=== PATIENT | female | born 1960 | race Caucasian/White ===

== ENCOUNTER 2017-02-05 15:08 | Inpatient (IN) | payer OTHER ==
[2017-02-05 15:14] VITALS: BMI 21.0
[2017-02-05] MEDS ORDERED: Sodium Chloride 0.9% 1,000 ML IV ONE ×2 (15:28→18:16)
[2017-02-05 15:56] LABS: BASO # 0.1 K/uL (0.0-0.2); BASO % 1.3 % (0.0-2.0); EOS # 0.2 K/uL (0.0-0.7); EOS % 2.2 % (0.0-4.0); HEMATOCRIT 42.3 % (34.0-47.0); LYMPH # 2.1 K/uL (1.0-4.3); LYMPH % 19.1 % (20.0-40.0); MEAN CORPUSCULAR HEMOGLOBIN 26.5 pg (27.0-31.0); MEAN PLATELET VOLUME 6.3 fL (7.2-11.7); MONO % 8.8 % (0.0-10.0); RED CELL DISTRIBUTION WIDTH 15.3 % (11.5-14.5); WHITE BLOOD COUNT 11.2 K/uL (4.8-10.8)
[2017-02-05 15:57] LABS: MEAN CELL VOLUME 80.1 fL (81.0-99.0)
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
[2017-02-05 16:07] LABS: CHLORIDE 102 mmol/L (98-107); POTASSIUM 3.2 mmol/L (3.6-5.2); SODIUM 138 mmol/L (132-148)
[2017-02-05 16:09] LABS: ALB/GLOB RATIO 1.3 (1.0-2.1); AST/SGOT 26 U/L (14-36); BILIRUBIN,TOTAL 0.4 mg/dL (0.2-1.3); CARBON DIOXIDE 23 mmol/L (22-30); GFR AFRICAN-AMERICAN > 60; TOTAL PROTEIN 7.8 g/dL (6.3-8.3)
[2017-02-05 16:10] LABS: ALKALINE PHOSPHATASE 111 U/L (38-126); ALT/SGPT 32 U/L (9-52); BLOOD UREA NITROGEN 18 mg/dL (7-17); CALCIUM 9.6 mg/dl (8.6-10.4); GLUCOSE,RANDOM 89 mg/dL (65-105)
[2017-02-05 16:11] LABS: ALCOHOL SERUM < 10 mg/dl (0-10)
--- NOTE | 2017-02-05 16:18 | RAD ---
HISTORY: overdose/si COMPARISON: Chest x-ray performed 12/22/15 TECHNIQUE: Chest, one view. FINDINGS: LUNGS: Mild left basilar atelectasis. No focal consolidation. Please note that chest x-ray has limited sensitivity for the detection of pulmonary masses. PLEURA: No significant pleural effusion identified. No definite pneumothorax . CARDIOVASCULAR: Heart size appears top normal. OSSEOUS STRUCTURES: Degenerative changes. VISUALIZED UPPER ABDOMEN: Unremarkable. OTHER FINDINGS: None. IMPRESSION: Mild left basilar atelectasis.
[2017-02-05] MEDS ORDERED: Potassium Chloride 20 mEq ER Tab PO STA (16:53)
[2017-02-05] MEDS ORDERED: Potassium Chloride 20 mEq ER Tab PO ONE (17:05)
[2017-02-05 17:41] LABS: RBC URINE < 1 /hpf (0-3); URINE BACTERIA RARE (<OCC); URINE BILIRUBIN NEGATIVE (NEGATIVE); URINE BLOOD 1+ (NEGATIVE); URINE COLOR Straw (YELLOW); URINE GLUCOSE (UA) NORMAL (Normal); URINE KETONE NEGATIVE (NEGATIVE); URINE LEUKOCYTE ESTERASE NEG Leu/uL (Negative); URINE PROTEIN NEGATIVE (NEGATIVE); URINE UROBILINOGEN NORMAL mg/dL (0.2-1.0); WBC URINE < 1 /hpf (0-5)
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
[2017-02-05] MEDS: Sodium Chloride 0.9% 1,000 ML IV SCH (22:54)
[2017-02-06] MEDS: Enoxaparin 30 mg Syringe SC SCH (09:10)
[2017-02-06 11:46] LABS: BASO # 0.1 K/uL (0.0-0.2); BASO % 1.2 % (0.0-2.0); EOS # 0.2 K/uL (0.0-0.7); EOS % 1.8 % (0.0-4.0); HEMATOCRIT 42.8 % (34.0-47.0); LYMPH # 2.1 K/uL (1.0-4.3); LYMPH % 21.4 % (20.0-40.0); MEAN CELL VOLUME 80.3 fL (81.0-99.0); MEAN CORPUSCULAR HEMOGLOBIN 26.5 pg (27.0-31.0); MEAN PLATELET VOLUME 6.7 fL (7.2-11.7); MONO # 0.4 K/uL (0.0-0.8); MONO % 4.5 % (0.0-10.0); RED CELL DISTRIBUTION WIDTH 15.7 % (11.5-14.5); WHITE BLOOD COUNT 9.6 K/uL (4.8-10.8)
[2017-02-06 12:02] LABS: CHLORIDE 103 mmol/L (98-107); POTASSIUM 3.4 mmol/L (3.6-5.2); SODIUM 140 mmol/L (132-148)
[2017-02-06 12:04] LABS: ALB/GLOB RATIO 1.4 (1.0-2.1); AST/SGOT 28 U/L (14-36); BILIRUBIN,TOTAL 0.6 mg/dL (0.2-1.3); BLOOD UREA NITROGEN 10 mg/dL (7-17); CARBON DIOXIDE 23 mmol/L (22-30); GFR AFRICAN-AMERICAN > 60; TOTAL PROTEIN 7.6 g/dL (6.3-8.3)
[2017-02-06 12:05] LABS: ALKALINE PHOSPHATASE 100 U/L (38-126); ALT/SGPT 28 U/L (9-52); CALCIUM 8.7 mg/dl (8.6-10.4); GLUCOSE,RANDOM 151 mg/dL (65-105); MAGNESIUM 1.6 mg/dL (1.6-2.3); PHOSPHOROUS 3.2 mg/dL (2.5-4.5)
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
[2017-02-06] MEDS: Potassium Chloride 20 mEq ER Tab PO SCH (13:55)
--- NOTE | 2017-02-06 16:49 | PCM.BM ---
<Laurie Mary - Last Filed: 02/06/17 16:48> Treatment Plan Problems - Problems identified on initial assessmt Depression Date Initiated: 02/06/17 Time Initiated: 16:48 Assessment reference: NA Priority: 1 <Karen Garibay - Last Filed: 02/07/17 11:00> Discharge/Continuing Care - Education Needs Education Needs: Patient Medication, Patient Coping Skills - Discharge Discharge Criteria: Tolerates medication w/o severe side effects, Free of paranoid thoughts, No longer exhibiting s/s of withdrawal Discharge to:: Home, With Family <Reymundo Myers - Last Filed: 02/07/17 11:38> - Diagnosis (1) Bipolar disorder, curr episode mixed, severe, w/o psychotic features Status: Acute Interventions: 02/07/17 11:38 * Assess/adjust medications daily and /or as needed * See patient on an individual basis 7x/week to assess level of manic behaviors and stability * Discuss risks, benefits, side effects and alternatives of medications *
--- NOTE | 2017-02-06 17:10 | CARD ---
APPROVED REPORT EKG Measurement Heart [id number] <Conclusion> Normal sinus rhythm Left axis deviation Abnormal ECG
[2017-02-06] MEDS: Albuterol HFA 90 mcg/actuation (8 g) INH PRN (22:18)
[2017-02-07] MEDS: Potassium Chloride 20 mEq ER Tab PO SCH (09:35)
[2017-02-07] MEDS: Albuterol HFA 90 mcg/actuation (8 g) INH PRN (09:39)
[2017-02-07] MEDS ORDERED: Divalproex 250 mg DR Tab PO SCH (10:00)
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
[2017-02-07] MEDS: Enoxaparin 30 mg Syringe SC SCH (11:43)
[2017-02-07] MEDS: Sodium Chloride 0.9% 1,000 ML IV SCH (11:44)
[2017-02-08] MEDS: Albuterol HFA 90 mcg/actuation (8 g) INH PRN ×2 (06:33→11:21)
[2017-02-08] MEDS: Enoxaparin 30 mg Syringe SC SCH (09:20)
[2017-02-08] MEDS: Potassium Chloride 20 mEq ER Tab PO SCH (09:24)
[2017-02-08] MEDS: Pantoprazole 40 mg EC Tab PO SCH (09:24)
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
[2017-02-08 14:25] LABS: CHLORIDE 103 mmol/L (98-107)
[2017-02-08 14:26] LABS: SODIUM 144 mmol/L (132-148)
[2017-02-08 14:28] LABS: GFR AFRICAN-AMERICAN > 60
[2017-02-08 14:29] LABS: BLOOD UREA NITROGEN 22 mg/dL (7-17); CALCIUM 10.1 mg/dl (8.6-10.4); CARBON DIOXIDE 29 mmol/L (22-30); GLUCOSE,RANDOM 89 mg/dL (65-105)
[2017-02-08 14:44] LABS: FREE T4 0.93 ng/dL (0.78-2.19)
[2017-02-08 14:58] LABS: THYROID STIMULATING HORMONE 3.68 mIU/L (0.46-4.68)
[2017-02-09] MEDS: Pantoprazole 40 mg EC Tab PO SCH (09:47)
--- NOTE | 2017-02-10 08:47 | PCM.PYCHPN ---
Psychiatric Progress Note - Psychiatric Progress Note Patient seen today, length of contact: 16 minutes Patient Chief Complaint: "I'm crying all the time" Problems Identified/Issues Discussed: The pt is seen, chart reviewed, case discussed with staff. The pt is compliant with medications and reports no side-effects. Symptoms are improving but needs more time to stabilize. After care discussed, support and psychoeducation given. Still very depressed and tearful - support given Medication Change: Yes (increase lexapro and trazodone) Medical Record Reviewed: Yes Mental Status Examination - Cognitive Function Orientation: Person, Place, Situation, Time Memory: Intact Attention: WNL Concentration: Poor Association: WNL Fund of Knowledge: Poor - Mood Mood: Depressed, Anxious - Affect Affect: Constricted, Depressed - Speech Speech: Appropriate - Formal Thought Process Formal Thought Process: No Impairment - Suicidal Ideation Suicidal Ideation: No - Homicidal Ideation Homicidal Ideation: No Goal/Treatment Plan - Goal/Treatment Plan Need for Continued Stay: Remain at risks for inpatient hospitalization, Severe depression anxiety, Discharge may exacerbated symptoms, Severe functional impairment Progress Toward Problem(s) and Goals/Treatment Plan: Continue medications Support and psychoeducation daily Attend groups and activities daily After care planning by SERA
[2017-02-10] MEDS: Pantoprazole 40 mg EC Tab PO SCH (09:47)
--- NOTE | 2017-02-10 09:54 | PCM.PYCHPN ---
Psychiatric Progress Note - Psychiatric Progress Note Patient seen today, length of contact: 16 minutes Patient Chief Complaint: "I'm depressed." Problems Identified/Issues Discussed: The pt. is seen, chart reviewed, and case discussed with staff. Pt. reports to still being depressed and expresses great concern about her living situation after discharge. Pt.'s sister and daughter were supposed to come this morning to drop off her belongings, but they have not arrived yet. Pt. states she needs to talk to an agency about her new living situation but she is unable to b/c she doesn't have her checkbook to make phone bill payments. Pt. is distressed and tearful throughout the conversation. Pt. reports to having good appetite and slept well through the night with Trazodone. At present, pt. denies auditory and visual hallucinations and denies suicidal and homicidal ideation. Symptoms are improving but needs more time to stabilize. After care discussed, support and psychoeducation given. Medication Change: No Medical Record Reviewed: Yes Mental Status Examination - Cognitive Function Orientation: Person, Place, Situation, Time Memory: Intact Attention: WNL Concentration: Poor Association: WNL Fund of Knowledge: Poor - Mood Mood: Depressed, Anxious - Affect Affect: Constricted, Depressed - Speech Speech: Appropriate - Formal Thought Process Formal Thought Process: No Impairment - Suicidal Ideation Suicidal Ideation: No - Homicidal Ideation Homicidal Ideation: No Goal/Treatment Plan - Goal/Treatment Plan Need for Continued Stay: Remain at risks for inpatient hospitalization, Severe depression anxiety, Discharge may exacerbated symptoms Progress Toward Problem(s) and Goals/Treatment Plan: Bipolar depressed severe without psychotic features CBT Psychoeducation Supportive therapy, group therapy, individual therapy Haldol 10mg PO BID Haldol 5mg PO Q6H PRN voices/agitation [place] 300mg PO TID Seroquel 100mg PO HS Buspar 10mg PO TID PRN anxiety Estimated Date of D/C: 02/13/17 - Smoking Cessation Smoking Cessation Initiated: No
[2017-02-10] MEDS: Albuterol HFA 90 mcg/actuation (8 g) INH PRN (14:18)
[2017-02-11] MEDS: Pantoprazole 40 mg EC Tab PO SCH (09:23)
--- NOTE | 2017-02-11 09:49 | PCM.PYCHPN ---
Psychiatric Progress Note - Psychiatric Progress Note Patient seen today, length of contact: 16 minutes Patient Chief Complaint: "I'm anxious." Problems Identified/Issues Discussed: The pt. is seen, chart reviewed, and case discussed with staff. Pt. reports she is very anxious and worried about how her living situation will panchal out after discharge. Her sister and daughter did not visit the pt. yesterday , and pt. was not able to talk to the agency for her new home. She also reports that she does not want to be out in public b/c everyone talks about her weight, and she doesn't want to "deal with everyone." Pt. is still very tearful throughout the conversation. Pt. reports that she is having trouble "getting her words out," although she is able to formulate the sentences in her head. She believes it may be from the medications. Pt. states she used to be a very articulate person, but now since she is unable to connect words properly, she is worried that no one would hire her. Also, she is worried that since her father had Alzheimer's, she may also be diagnosed with that disease. Pt. also reports she had trouble sleeping last night. Pt. currently denies suicidal and homicidal ideation. She also denies visual and auditory hallucinations. Pt. reports to having decreased interest in everything around her, but states her energy has been better than before. Pt. denies paranoia, flight of ideas, and racing thoughts. Symptoms are improving but needs more time to stabilize. After care discussed, support and psychoeducation given. Medication Change: Yes (d/c lithium, start depakote) Medical Record Reviewed: Yes Mental Status Examination - Cognitive Function Orientation: Person, Place, Situation, Time Memory: Intact Attention: WNL Concentration: Poor Association: WNL Fund of Knowledge: Poor - Mood Mood: Depressed, Anxious - Affect Affect: Constricted, Depressed - Speech Speech: Appropriate - Formal Thought Process Formal Thought Process: No Impairment - Suicidal Ideation Suicidal Ideation: No - Homicidal Ideation Homicidal Ideation: No Goal/Treatment Plan - Goal/Treatment Plan Need for Continued Stay: Remain at risks for inpatient hospitalization, Severe depression anxiety, Discharge may exacerbated symptoms Progress Toward Problem(s) and Goals/Treatment Plan: Bipolar depressed severe without psychotic features CBT Psychoeducation Supportive therapy, group therapy, individual therapy Haldol 10mg PO BID Haldol 5mg PO Q6H PRN voices/agitation d/c [place] 300mg PO TID Seroquel 100mg PO HS Buspar 10mg PO TID PRN anxiety Start depakote 250 mg po bid Estimated Date of D/C: 02/13/17 - Smoking Cessation Smoking Cessation Initiated: No
[2017-02-11] MEDS: Albuterol HFA 90 mcg/actuation (8 g) INH PRN (09:52)
[2017-02-12] MEDS ORDERED: Divalproex 250 mg DR Tab PO SCH (10:00)
--- NOTE | 2017-02-12 11:13 | PCM.PYCHPN ---
Psychiatric Progress Note - Psychiatric Progress Note Patient seen today, length of contact: 16 minutes Patient Chief Complaint: "I feel better than before." Problems Identified/Issues Discussed: The pt. is seen, chart reviewed, and case discussed with staff. Pt. appears to be less tearful today. Pt. states the new living arrangement was taken away because she was unable to meet with the agency yesterday. Her estimated discharge is tomorrow, but she states she's not ready to leave because "she is not herself." Pt. denies suicidal ideation, but states "I don' t care if I live or not." Pt. reports to having difficulty getting her words out although she is able to formulate the words in her head, so [place] was DC. Symptoms are improving but needs more time to stabilize. After care discussed, support and psychoeducation given. Pt. reports she will f/ u with [facility] after discharge. Medication Change: Yes (d/c depakote, start Lamictal ) Medical Record Reviewed: Yes Mental Status Examination - Cognitive Function Orientation: Person, Place, Situation, Time Memory: Intact Attention: WNL Concentration: Poor Association: WNL Fund of Knowledge: Poor - Mood Mood: Depressed, Anxious - Affect Affect: Constricted, Depressed - Speech Speech: Appropriate - Formal Thought Process Formal Thought Process: No Impairment - Suicidal Ideation Suicidal Ideation: No - Homicidal Ideation Homicidal Ideation: No Goal/Treatment Plan - Goal/Treatment Plan Need for Continued Stay: Remain at risks for inpatient hospitalization, Severe depression anxiety, Discharge may exacerbated symptoms, Severe functional impairment Progress Toward Problem(s) and Goals/Treatment Plan: Bipolar depressed severe without psychotic features CBT Psychoeducation Supportive therapy, group therapy, individual therapy Haldol 10mg PO BID Seroquel 100mg PO HS Buspar 10mg PO TID PRN anxiety D/C depakote 250 mg po bid Lamictal 25 mg PO BID Estimated Date of D/C: 02/13/17
[2017-02-12 16:00] VITALS: RESP 20; O2SAT 95
[2017-02-13 07:29] VITALS: BP 135/88; PULSE 88; TEMP 98.1
[2017-02-13] MEDS: Pantoprazole 40 mg EC Tab PO SCH (09:47)
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
== END 2017-02-13 13:15 | disposition home or self-care (01) | DRG 449 ==
LOC: C.ER 15:08 → C.9E 18:27 → C.6T 19:12 → OBSVTOIN 02-06 13:37 → C.5E 02-06 13:37
PROVIDERS: ADMIT Psychiatry & Neurology Psychiatry; ATTEND Psychiatry & Neurology Psychiatry
PROC: GZHZZZZ Group Psychotherapy (ICD-10-PCS; principal; 2017-02-06)
PROC: GZ58ZZZ Individual Psychotherapy, Cognitive-Behavioral (ICD-10-PCS; 2017-02-06)
PROC: GZ56ZZZ Individual Psychotherapy, Supportive (ICD-10-PCS; 2017-02-06)
DX: T42.4X2A Poisoning by benzodiazepines, intentional self-harm, initial encounter (principal); E87.6 Hypokalemia; R45.851 Suicidal ideations; F14.90 Cocaine use, unspecified, uncomplicated; I10 Essential (primary) hypertension; J45.909 Unspecified asthma, uncomplicated; F43.10 Post-traumatic stress disorder, unspecified; R40.0 Somnolence; Z85.41 Personal history of malignant neoplasm of cervix uteri; F17.210 Nicotine dependence, cigarettes, uncomplicated; F31.4 Bipolar disorder, current episode depressed, severe, without psychotic features; D72.829 Elevated white blood cell count, unspecified; F41.8 Other specified anxiety disorders